=== PATIENT | male | born 2000 | race Caucasian/White ===

== ENCOUNTER 2024-01-13 18:08 | Emergency (ER) | payer OTHER ==
[~2024-01-13] VITALS: Ht 180.3 cm; Wt 75.9 kg
[2024-01-13] MEDS ORDERED: BACT800T5 PO (23:49)
[2024-01-13] MEDS: BACTRIM 160MG/800MG DS TAB PO ONE (23:53)
[2024-01-13 23:58] VITALS: BP 135/65; TEMP 97.8; O2SAT 98
== END 2024-01-14 | disposition home or self-care (01) ==
LOC: M ED 18:08
DX: L98.9 Disorder of the skin and subcutaneous tissue, unspecified (principal)